=== PATIENT | female | born 1985 | race African-American/Black ===

== ENCOUNTER 2020-10-20 09:09 | Emergency (ER) | payer OTHER, SELFPAY ==
[2020-10-20 09:20] VITALS: BP 122/85; PULSE 68; RESP 16; TEMP 36.3; O2SAT 99
--- NOTE | 2020-10-20 09:48 | ED.FEMALEGU ---
HPI - Female Genitourinary General Chief complaint: Urogenital-Female Stated complaint: pos yeast infection Time Seen by Provider: 10/20/20 09:45 Source: patient Mode of arrival: ambulatory Limitations: no limitations History of Present Illness HPI Narrative: Wilton Morales is a 35 yo female with a PMH of asthma who [facility] with complaints of a yellow discharge that started this morning and and itching for the past 3 days after treatment with Cipro for UTI. She denies possibility of STD, and although she has not had a menstrual cycle for 2 months states she cannot be as she has had a tubal ligation Related Data Allergies Allergy/AdvReac Type Severity Reaction Status Date / Time No Known Allergies Allergy Verified 10/20/20 09:31 Review of Systems Review of Systems: CONSTITUTIONAL: Denies fever, chills, sweats. EYES: Denies visual changes, redness, discharge. ENT: Denies rhinorrhea, congestion, sore throat, otalgia. CARDIOVASCULAR: Denies chest pain, palpitations, edema. RESPIRATORY: Denies dyspnea, wheezing, cough GASTROINTESTINAL: Denies abdominal pain, nausea, vomiting, diarrhea. GENITOURINARY: Denies dysuria, hematuria, has yellowish abnormal discharge SKIN: Denies rash or itching. NEUROLOGIC: Denies numbness, or focal weakness. PSYCHIATRIC: Denies anxiety or depression. PMFSH Past Medical History Medical History No acute medical problems Social History Social History (Updated 10/20/20 @ 10:06 by Darleen Gregory CNP) Smoking status: Never smoker Alcohol intake: never Gender identity (if verbalized by the patient): Female Comments At time of signature, I agree with nursing past medical, surgical, social and family history. There is no relevant family history pertinent to the presenting complaint. Exam Narrative: GENERAL: This is a well-nourished, well-developed patient, in mild distress. HEAD: normocephalic, atraumatic. EYES: Sclera clear/white. Vision is grossly intact. EARS: External ears normal, . Hearing grossly intact. NOSE: External nose normal without nasal discharge, nares without redness, no rhinorrhea. THROAT: Mucous membranes moist, NECK: Neck supple, CARDIOVASCULAR: Regular rate and rhythm without murmurs, gallops, or rubs. RESPIRATORY: Clear to auscultation. Breath sounds equal bilaterally. No wheezes, rales, or rhonchi. GASTROINTESTINAL: Abdomen soft, : White vaginal discharge with redness of the vaginal vault no lesions no excoriation no edema no CMT SKIN: warm, intact with no suspicious lesions or rash, good texture and turgor. NEURO: awake, alert, and oriented to person, place and time. There were no obvious focal neurologic abnormalities. Steady gait EXTREMITIES: Normal range of motion. BACK: Nontender without deformity Course Course Emergency Course: Patient comes after close to completion of Cipro prescription for pyelonephritis with itchiness and irritation of the vaginal area, denies STD or urinary tract symptoms Started on Diflucan and vaginal cream Vital Signs Vital signs: Vital Signs Temperature 97.3 F L 10/20/20 09:20 Pulse Rate 68 10/20/20 09:20 Respiratory Rate 16 10/20/20 09:20 Blood Pressure 122/85 10/20/20 09:20 Pulse Oximetry 99 10/20/20 09:20 Temperature 97.3 F L 10/20/20 09:20 Pulse Rate 68 10/20/20 09:20 Respiratory Rate 16 10/20/20 09:20 Blood Pressure 122/85 10/20/20 09:20 Pulse Oximetry 99 10/20/20 09:20 MDM - Female Genitourinary Differential Diagnosis Differential diagnosis: Likely bacterial vaginosis, cervicitis, vaginitis and other Lab Data Labs: UCG Bedside Result Negative Reference Range: Negative Urine Glucose Negative Reference Range: Negative Urine Bilirubin Negative
== END 2020-10-20 10:25 | disposition home or self-care (01) ==
PROVIDERS: Emergency Provider Nurse Practitioner
DX: N76.0 Acute vaginitis (principal); J45.909 Unspecified asthma, uncomplicated
CPT/HCPCS: 81003; 81025; 99213; G0463

== ENCOUNTER 2023-06-12 10:56 | Emergency (ER) | payer OTHER, SELFPAY ==
--- NOTE | ~2023-06-12 | XR_ITS ---
EXAMINATION: XR chest 1V portable DATE: 06/12/2023 13:26 INDICATION: Left breast pain. TECHNIQUE: A single frontal view of the chest was obtained on 2 radiographs. COMPARISON: Chest one view 12/31/2022 FINDINGS: There is no pneumonia, pleural effusion, or pneumothorax. The heart size is normal. IMPRESSION: 1. No acute cardiopulmonary disease. Reviewed, dictated and finalized at location A.
[2023-06-12 11:05] VITALS: BP 121/83; PULSE 95; RESP 18; TEMP 37.1; O2SAT 99
[2023-06-12 12:41] LABS: Basophils Absolute Auto 0.1 K/mm3 (0.0-0.1); Basophils Percent Auto 1.3 % (0.2-1.2); Eosinophils Absolute Auto 0.2 K/mm3 (0-0.3); Eosinophils Percent Auto 3.2 % (0-4.4); Hematocrit 33.4 % (37.0-47.0); Immature Granulocyte Absolute 0.01 K/mm3 (0.00-0.031); Immature Granulocyte Percent A 0.2 % (0-0.5); Lymphocytes Absolute Auto 2.27 K/mm3 (0.9-3.2); Lymphocytes Percent Auto 48.7 % (18.3-44.2); Mean Corpuscular HGB Conc 32.9 g/dl (32-36); Mean Corpuscular Hemoglobin 26.1 pg (26-34); Mean Corpuscular Volume 79.3 fl (80-100); Mean Platelet Volume 10.2 fl (7.4-10.4); Monocytes Absolute Auto 0.3 K/mm3 (0.1-0.6); Monocytes Percent Auto 5.6 % (2.6-8.5); Neutrophils Absolute Auto 1.9 K/mm3 (1.3-6.7); Platelet Count Result 218 k/mm3 (150-375); Red Blood Count 4.21 M/mm3 (4.2-5.4); Red Cell Distribution Width 14.4 % (11.5-14.5); White Blood Count 4.7 K/mm3 (4.5-10.0)
[2023-06-12 12:55] LABS: Alanine Aminotransferase 19 U/L (6-35); Alkaline Phosphatase 67 U/L (38-126); Anion Gap 4 mmol/L (4-12); Aspartate Amino Transferase 30 U/L (14-36); Bilirubin,Total 0.8 mg/dL (0.2-1.3); Blood Urea Nitrogen 10 mg/dL (7-17); Calcium 8.4 mg/dL (8.4-10.2); Carbon Dioxide 28 mmol/L (22-30); Chloride 107 mmol/L (98-107); Estimated CRCL calculation 100 ml/min; Estimated Glomerular Filt Rate > 60; Glucose 79 mg/dL (65-110); Potassium 3.7 mmol/L (3.4-5.0); Sodium 139 mmol/L (137-145)
--- NOTE | 2023-06-12 13:12 | ED.GENADULT ---
HPI - General Adult General Chief complaint: Unspecified Stated complaint: breast pain, lumps Time Seen by Provider: 06/12/23 12:20 History of Present Illness HPI narrative: 37-year-old female present to the emergency department for evaluation of bilateral breast pain that is been ongoing for the last 2 weeks. Patient reports he does have a family history of breast cancer but denies any personal history breast cancer. Patient denies any recent illnesses or coughs colds or fever. Patient denies any skin breakdown or changes to the breast. Patient did feel lumps on the breast bilaterally. Related Data Home Medications Medication Instructions Recorded Confirmed albuterol sulfate 90 mcg/actuation 1 puff inhalation Q4H PRN 04/17/21 09/30/22 aerosol inhaler (ProAir HFA) budesonide-formoterol HFA 160 2 puff inhalation Q12H 04/17/21 09/30/22 mcg-4.5 mcg/actuation aerosol inhaler (Symbicort) Allergies Allergy/AdvReac Type Severity Reaction Status Date / Time No Known Allergies Allergy Verified 09/30/22 09:59 Review of Systems Review of Systems: All systems reviewed & are unremarkable except as noted in HPI and below PMFSH Past Medical History Medical History (Updated 06/12/23 @ 13:46 by Mayco Ruano MD) Asthma Constipation Dysuria Encounter for IUD insertion 06/11/06 mirena iud insertion 02/10/11 mirena iud removal Gonorrhea Hx of trichomonal vaginitis No acute medical problems Surgical History Surgical History (Updated 09/30/22 @ 10:05 by PRINCE Rocha) History of gastric bypass (11/28/21) History of tubal ligation 01/20/12 Family History Family History Mother Diabetes mellitus Father Diabetes mellitus Grandparent Breast cancer maternal grandmother Other Breast cancer maternal aunt Social History Social History (Updated 09/30/22 @ 10:06 by PRINCE Rocha) Smoking status: Never smoker Alcohol intake: never Substance use: never Substance use type: does not use Lack of Transportation: No Lack of Food: Never True Current Housing: I Have Housing Concerned About Future Housing: No Difficulty Paying Gas/Electric Bills: No Difficulty Paying for Meds: No Currently Unemployed: No Education: Trade/Vocational Certificate Difficulty w/ Childcare or Family Care: No Living arrangements: with family Additional living arrangements comments: children/ single Occupation/Education: occupation 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 HEAD: normocephalic, atraumatic. EYES: PERRLA/EOMI, conjunctivae clear. NOSE: Normal no drainage EARS:TMS clear with good light reflex. THROAT: Pharynx clear, no exudate. NECK: Supple. No adenopathy, no masses. RESPIRATORY: Airway patent, respirations nonlabored. Clear to auscultation bilaterally, no rales, rhonchi, wheezing. CARDIOVASCULAR: Regular rate and rhythm without murmurs rubs or gallops. ABDOMINAL: Soft, nontender, nondistended, normal bowel sounds MUSCULOSKELETAL: Moves all extremities. Strength/ROM intact, No edema, No calf tenderness. NEURO: Alert. Cranial nerves II through XII intact. Grossly intact SKIN: Warm, dry. Normal Color. no large lymph nodes palpated on the breast but some small lymph nodes were palpated. No skin changes or inverted nipple Course Course Emergency Course: patient was encouraged to have close follow-up with primary care physician and Ob Gyne to have an outpatient mammogram and ultrasound as needed Vital Signs Vital signs: Vital Signs Temperature 98.7 F 06/12/23 11:05 Pulse Rate 95 06/12/23 11:05 Respiratory Rate 18 06/12/23 11:05 Blood Pressure 121/83
[2023-06-12] MEDS: HYDROcodone/acetaminophen (*CRX) 5-325 MG TABLET 1 TAB PO (13:17)
[2023-06-12] MEDS: KETOROLAC 30 MG/ML VIAL (*BKC) IM (13:17)
== END 2023-06-12 14:11 | disposition home or self-care (01) ==
PROVIDERS: Emergency Provider Emergency Medicine; PCP Internal Medicine Gastroenterology
DX: N64.4 Mastodynia (principal); Z80.3 Family history of malignant neoplasm of breast; J45.909 Unspecified asthma, uncomplicated
CPT/HCPCS: 36415; 71045; 80053; 85025; 96372; 99283; A9270; J1885

== ENCOUNTER 2023-08-21 14:41 | Outpatient (CLI) | payer OTHER, SELFPAY ==
--- NOTE | 2023-08-21 | ECG_ITS ---
Test Date: 2023-08-21 15:17:47 Measurements Intervals [place] Rate: 51 P: 61 MA: 131 QRS: 57 QRSD: 94 T: 40 QT: 446 QTc: 413 Interpretive Statements SINUS BRADYCARDIA No previous ECG available for comparison Electronically Signed On 08-22-2023 15:52:33 CDT by Kennedy Segura M.D.
== END 2023-08-21 14:42 | disposition home or self-care (01) ==
LOC: ANHCARD 14:43
PROVIDERS: PCP Internal Medicine Gastroenterology
DX: K90.9 Intestinal malabsorption, unspecified (principal); Z98.84 Bariatric surgery status; Z68.30 Body mass index [BMI] 30.0-30.9, adult
CPT/HCPCS: 93005

== ENCOUNTER 2024-03-01 11:34 | Outpatient (CLI) | payer OTHER, SELFPAY ==
--- NOTE | ~2024-03-01 | MM_ITS ---
EXAMINATION: MM screening [facility] BI w beth HISTORY: Baseline TECHNIQUE: Craniocaudal and mediolateral oblique 3-D tomosynthesis images were obtained and synthetic 2-D images were generated. CAD analysis was submitted and interpreted. COMPARISON: None BREAST PARENCHYMAL COMPOSITION: FINDINGS: Punctate and bulky calcifications detected bilaterally, benign in morphology. Unremarkable parenchymal pattern without suspicious microcalcifications, architectural distortion, di screte masses or significant asymmetry. IMPRESSION: 1. No mammographic evidence of malignancy. 2. Recommend routine screening mammography in one year. BI-RADS Category 2: Benign finding(s). Reviewed, dictated and finalized at location A. [employer]IVE ELECT[employer]ICAL [employer]TER
== END 2024-03-01 11:35 | disposition home or self-care (01) ==
PROVIDERS: PCP Internal Medicine Gastroenterology; Visit Provider Obstetrics & Gynecology
DX: Z12.31 Encounter for screening mammogram for malignant neoplasm of breast (principal)
CPT/HCPCS: 77063; 77067

== ENCOUNTER 2024-06-05 02:18 | Emergency (ER) | payer OTHER, SELFPAY ==
--- NOTE | ~2024-06-05 | XR_ITS ---
CHEST RADIOGRAPH, PA AND LATERAL CLINICAL HISTORY: sob . COMPARISON: 06/12/2023 TECHNIQUE: PA and lateral views of the chest. FINDINGS The cardiomediastinal silhouette is unremarkable. The lungs are clear. Visualized osseous structures and soft tissues are unremarkable. IMPRESSION: No focal infiltrate or effusion. Reviewed, dictated and finalized at location A.
[2024-06-05 02:19] VITALS: BP 126/82; PULSE 89; RESP 16; TEMP 36.4; O2SAT 100
--- NOTE | 2024-06-05 02:19 | ECG_ITS ---
Test Date: 2024-06-05 02:24:28 Measurements Intervals [place] Rate: 88 P: 48 MD: 143 QRS: 43 QRSD: 90 T: -19 QT: 375 QTc: 455 Interpretive Statements SINUS RHYTHM NONSPECIFIC T-WAVE ABNORMALITY ABNORMAL ECG Electronically Signed On 06-05-2024 07:42:35 CDT by Tobias Desai M.D.
--- OUTSIDE RECORDS SUMMARY | 2024-06-05 02:20 | XMS_ITS | Clinical Summary ---
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 Gender Identity Not on file Sexual Orientation Not on file Plan of Treatment Health Maintenance Due Date Last Done Comments Hepatitis C Virus (HCV) Screening 1987 TdaP Immunization 1987 Influenza Immunization (#1) 2023 SARS-COV-2 Immunization ( season) 2023 02/27/2021, 07/28/2020, 07/07/2020 Respiratory Syncytial Virus (RSV) Immunization (Adult) (1 - 1-dose 75+ series) 10/04/2062 DTaP/Tdap/Td Immunization Discontinued 1991, 04/11/1989, 04/12/1988, Additional history exists Hepatitis B Immunization Completed 999, 12/05/1997, 10/31/1997 Meningococcal Immunization (ACWY) Aged Out No longer eligible based on patient's age to complete this topic Pneumococcal Immunization Combined Aged Out No longer eligible based on patient's age to complete this topic Rotavirus Immunization Aged Out No lo nger eligible based on patient's age to complete this topic
--- OUTSIDE RECORDS SUMMARY | 2024-06-05 02:20 | XMS_ITS | Clinical Summary ---
Author Organization [facility] Address [address] [place] [address] Care Team Providers Care Documentation Writer Name Role Phone No, Physician Primary Care Provider [phone] Liset Jaimes PT Unavailable Unavailab le Allergies No known active allergies Medications albuterol HFA (PROVENTIL HFA,VENTOLIN HFA,PROAIR HFA) 90 mcg/actuation inhaler Inhale 2 puffs every 8 (eight) hours as needed Active albuterol 2.5 mg /3 mL (0.083 %) nebulizer solution Take 2.5 mg by nebulization every 8 (eight) hours as needed for wheezing Active Symbicort 160-4.5 mcg/actuation inhaler Inhale 2 puffs as needed 11/16/19 22 Active montelukast (SINGULAIR) 10 mg tablet Take 10 mg by mouth nightly 11/16/19 22 Active cyclobenzaprine (FLEXERIL) 10 mg tablet Take 1 tablet (10 mg total) by mouth every 8 (eight) hours for 4 days 12 tablet 11/30/19 22 Active ondansetron ODT (ZOFRAN-ODT) 4 mg disintegrating tablet Take 1 tablet (4 mg total) by mouth every 8 (eight) hours as needed for nausea or vomiting 30 tablet 11/30/19 22 Active docusate sodium (COLACE) 100 mg capsuleIndications :constipation,stoo l softener Take 1 capsule (100 mg total) by mouth 2 (two) times a day as needed for constipation 20 capsule 11/30/19 22 Active multivitamin tabletIndications: Vitamin Deficiency Prevention Take 1 tablet by mouth 2 (two) times a day 60 tablet 1 11/30/19 22 Active cyanocobalamin (Vitamin B-12) 500 mcg tabletIndications: Prevention of Vitamin B12 Deficiency Take 1 tablet (500 mcg total) by mouth daily 30 tablet 1 12/01/19 22 Active Active Problems Problem Noted Date Diagnosed Date Urinary tract infectious disease 08/19/2023 Thiamine deficiency 04/08/2023 Hypoglycemic syndrome 04/07/2023 Bariatric surgery status 01/10/2022 Overview (01/10/2022): Added automatically from request for surgery [id number] Vomiting 01/10/2022 Overview (01/10/2022): Added automatically from request for surgery [id number] Morbid (severe) obesity due to excess calories 0 11/28/2021 Gastroesophageal reflux disease without esophagi tis 10/03/2020 Fatigue 07/12/2020 Dizziness 07/12/2020 Disorder of skin 07/12/2020 Overview (08/21/2023): possible tinea versicolour Mass of soft tissue 07/12/2020 Overview (08/21/2023): left scalp Morning headache 07/12/2020 No diagnosis on Kismet I 04/13/2020 Asthma 03/20/2020 Hypersomnia 03/20/2020 Snoring 03/20/2020 Morbid obesity 01/09/2020 Encounters Date Type Department Care Team Description 04/13/2024 2:53 PM PRECINCT CAPTAIN - 04/13/2024 11:59 PM PRECINCT CAPTAIN Hospital Encounter [facility] [address] [place] [address] Pre-employment health screening examination Discharge Disposition: Discharge to home or self care 04/13/2024 Orders Only [facility] [address] [facility] [address] (Third Floor) [place] [address] Tito King MD Pre-employment health screening examination (Primary Dx) from Last 3 Months Immunizations Immunization Administration Dates Next Due Hep B, Adolescent or Pediatric 05/01/1998,1997,10/31/1997 MMR 09/04/1991,01/10/1989,04/12/1988 Pfizer SARS-CoV-2 Monovalent Vaccination (12+ Yrs) PURPLE 07/28/2020,07/07/2020 Surgical History Surgery Date Site/Laterality Comments TUBAL LIGATION Medical History Medical History Date Comments GERD (gastroesophageal reflux disease) Asthma Morbid obesity (HCC) Obesity 01/2003 Sickle cell trait Family History Medical History Relation Name Comments Alcohol abuse Father Rambo Asthma Father Rambo COPD Father Rambo Cancer Father Rambo Depression Father Rambo Drug abuse Father Rambo Hypertension Father Rambo Obesity Father Rambo Cancer Mother Lotus Depression Mother Louts Obesity Mother Lotus Relation Name Status Comments Father Rambo Mother Lotus Social History Tobacco Use Types Packs/Day Years Used Date Smoking Tobacco: Never Smokeless Tobacco: Never Tobacco Cessation:Counseling Given: Not Answered Alcohol Use Standard Drinks/Week Comments Yes 0 (1 standard drink = 0.6 oz pur e alcohol) AUDIT-C Answer Date Recorded Q1: How often do you have a drink containing alc ohol? Monthly or less 11/18/2021 Q2: How many drinks containi ng alcohol do you have on a typical day when you are drinking? 3 or 4 11/18/2021 Q3: How often do you have si x or more drinks on one occasion? Never 11/18/2021 Comments No Sex and Gender Information Value Date Recorded Sex Assigned at Not on file Legal Sex Female 8:44 PM PRECINCT CAPTAIN Gender Identity Female 01/04/2020 2:45 PM CDT Sexual Orientation Straight 01/04/2020 2: 45 PM CDT Obstetrics History Last Filed Vital Signs Vital Sign Reading Time Taken Comments Blood Pressure 138/82 01/08/2022 9:48 AM CDT Pulse 81 01/08/2022 9:48 AM CDT Temperature 36.2 C (97.1 F) 01/08/2022 9:48 AM CDT Respiratory Rate 16 11/29/2021 12:1 9 PM CDT Oxygen Saturation 100% 12/04/2021 10: 10 AM CDT Inhaled Oxygen Concentration - - Weight 107.7 kg (237 lb 6.4 oz) 01/08/2022 9:48 AM CDT Height 165.1 cm (5' 5 ) 01/08/2022 9:48 AM CDT Body Mass Index 39.51 01/08/2022 9:48 AM CDT Plan of Treatment Health Maintenance Due Date Last Done Comments Cervical Cancer Screening 1987 Depression Screening 1987 Hepatitis C Screening 1987 DTaP/Tdap/Td Vaccine (6 - Tdap) 10/04/1998 01/03/1992, 04/11/1989, 04/12/1988, Additional history exists Varicella Vaccines (1 of 2 - 13+ 2-dose series) 10/04/2000 Regular Well Visit/Exam 18-64 10/04/2005 Pneumococcal vaccine <65 (1 of 2 - PCV) 10/04/2006 Covid-19 Vaccine ( season) 2023 02/27/2021, 07/28/2020, 07/07/2020 Influenza Vaccine (#1) 2023 01/22/2023 Hepatitis B Screening Completed 05/01/1998 , 12/05/1997, 10/31/1997 HPV Vaccines Aged Out No longer eligi ble based on patient's age to complete this topic Medical Devices Implanted Type Area Crime Prevention Police Officer Device Identifier Shelf Expiration Date Model / Serial / Lot [employer] Bariatric Peristrip Non Crosslinked Bovine Pericardium For Endo Iva Thin [id number] - [id number] Implanted:Qty: 1 on 11/28/2021 by Abdullahi Jordan MD at [facility] Staple N/A: Stomach [employer] 09/27/2022 [id number] / / [id number] [employer] Bariatric Peristrip Non Crosslinked Bovine Pericardium For Endo Iva Thin [id number] - [id number] Implanted:Qty: 1 on 11/28/2021 by Abdullahi Jordan MD at [facility] Staple N/A: Stomach [employer] 09/27/2022 [id number] / / [id number] Procedures Procedure Name Priority Date/Time Associated Diagnosis Comments T-SPOT.TB Routine 04/13/2024 2:22 PM PRECINCT CAPTAIN Pre-employment health screening examination VARICELLA ZOSTER ANTIBODY, IGG Routine 04/13/2024 2:22 PM PRECINCT CAPTAIN Pre-employment health screening examination from Last 3 Months Results * T-SPOT.TB Blood (04/13/2024 2:22 PM PRECINCT CAPTAIN) [facility] T-SPOT.TB Negative SeeBelow Comment: Normal Value: Negative A negative test result does not exclude the possibility of exposure to or infection with Mycobacterium tuberculosis (M. tuberculosis). Patients with recent exposure to TB infected individuals exhibiting a negative T-SPOT.TB result should be considered for retesting within 6 weeks or if other relevant clinical symptoms indicate. Results from T-SPOT.TB testing must be used in conjunction with each individual's epidemiological history, current medical status, and results of other diagnostic evaluations. The T-SPOT.TB test is qualitative and results are reported as positive, borderline or negative, given that the test controls perform as expected. In line with the Centers for Disease Control and Prevention's 2010 recommendation to report quantitative measurements alongside the qualitative result, the laboratory provides spot counts for informational purposes only. The T-SPOT.TB test should not be interpreted as a quantitative test. T-SPOT.TB Panel A Spot Count 1 [facility] T-SPOT.TB Panel B Spot Count 0 [facility] T-SPOT.TB Negative Control Passed [facility] T-SPOT.TB Positive Control Passed [facility] Comment: Test Performed at: [facility], [employer] [address] [place] [id number] MELISSA CABRAL,PHD Blood 04/13/2024 2:22 PM PRECINCT CAPTAIN 04/13/2024 7:46 PM PRECINCT CAPTAIN Narrative [facility] - 04/15/2024 3:12 PM PRECINCT CAPTAIN Patient is employed by/enrolled at:->[facility] Tito King MD LAB MICROBIOLOGY - GENERAL OR DERABLES Final Result [facility] Department [place] [address] * Varicella Zoster IgG antibody Blood (04/13/2024 2:22 PM PRECINCT CAPTAIN) [facility] IgG Reactive Reactive Comment:Reactive: Results charlton ggest response to immunization or prior exposure to the virus. Blood 04/13/2024 2:22 PM PRECINCT CAPTAIN 04/13/2024 3:00 PM PRECINCT CAPTAIN Narrative [facility] - 04/14/2024 10:33 AM PRECINCT CAPTAIN Patient is employed by/enrolled at:->[facility] Tito King MD LAB MICROBIOLOGY - GENERAL OR DERABLES Final Result [facility] Department [place] [address] from Last 3 Months Insurance [facility] Advance Directives For more information, please contact: [phone] * Full Code (Latest Code Status on File) Date Activated Date Inactivated Comments 11/28/2021 5:39 PM 11/29/2021 9:25 PM * Full Code Date Activated Date Inactivated Comments 10/03/2020 9:04 AM 10/03/2020 1:25 PM Care Teams Documentation Writer Relationship Specialty Start Date End Date No, Physician PCP - General 05/22/21 Liset Jaimes, PT Physical Therapist Physical Therapy 07/31/21
--- OUTSIDE RECORDS SUMMARY | 2024-06-05 02:20 | XMS_ITS | Referral Summary ---
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 Role Phone No, Physician Primary Care Provider [phone] Liset Jaimes PT Unavailable Unavailab le Encounters Date Type Department Care Team Description 04/13/2024 2:53 PM RISK ANALYST - 04/13/2024 11:59 PM RISK ANALYST Hospital Encounter [facility] [address] [place] [address] Pre-employment health screening examination Discharge Disposition: Discharge to home or self care 04/13/2024 Orders Only [facility] [address] (Third Floor) [place] [address] Tito King MD Pre-employment health screening examination (Primary Dx) from Last 3 Months Allergies No known active allergies Medications albuterol [...] Take 10 mg by mouth nightly 11/16/19 Active cyclobenzaprine (FLEXERIL) 10 mg tablet Take [...] (01/10/2022): Added automatically from request for surgery [id number] Vomiting 01/10/2022 Overview (01/10/2022): Added automatically from request for surgery [id number] Morbid (severe) obesity due to excess calories 0 11/28/2021 Gastroesophageal reflux disease without esophagi tis 10/03/2020 Fatigue 07/12/2020 Dizziness 07/12/2020 Disorder of skin 07/12/2020 Overview (08/21/2023): possible tinea versicolour Mass of soft tissue 07/12/2020 Overview (08/21/2023): left scalp Morning headache 07/12/2020 No diagnosis on [place] I 04/13/2020 Asthma 03/20/2020 Hypersomnia 03/20/2020 Snoring 03/20/2020 Morbid obesity 01/09/2020 Immunizations Immunization Administration Dates Next Due Hep B, Adolescent or Pediatric 05/01/1998,1997,10/31/1997 MMR 09/04/1991,01/10/1989,04/12/1988 Pfizer SARS-CoV-2 Monovalent Vaccination (12+ Yrs) PURPLE 07/28/2020,07/07/2020 Social History Tobacco Use Types Packs/Day Years [...] on file Legal Sex Female 8:44 PM RISK ANALYST Gender Identity Female 01/04/2020 2:45 PM CDT Sexual Orientation Straight 01/04/2020 2: 45 PM CDT Last Filed Vital Signs Vital Sign Reading [...] 01/08/2022 9:48 AM CDT Plan of Treatment Not on file Medical Devices Implanted Type Area Medical Assistant Secretary Device Identifier Shelf Expiration Date Model / Serial / Lot [employer] Donny Biological Bariatric Peristrip Non Crosslinked Bovine Pericardium For Endo Iva Thin [id number] - [id number] Implanted:Qty: 1 on 11/28/2021 by Abdullahi Jordan MD at [facility] Staple N/A: Stomach [employer] Donny 09/27/2022 [id number] / / [id number] CICCWORLD Biological Bariatric Peristrip Non Crosslinked Bovine Pericardium For Endo Iva Thin [id number] - [id number] Implanted:Qty: 1 on 11/28/2021 by Abdullahi Jordan MD at [facility] Staple N/A: Stomach [employer] Donny 09/27/2022 [id number] / / [id number] Procedures Procedure Name Priority Date/Time Associated Diagnosis Comments T-SPOT.TB Routine 04/13/2024 2:22 PM RISK ANALYST Pre-employment health screening examination VARICELLA ZOSTER ANTIBODY, IGG Routine 04/13/2024 2:22 PM RISK ANALYST Pre-employment health screening examination from Last 3 Months Results * T-SPOT.TB Blood (04/13/2024 2:22 PM RISK ANALYST) [facility] T-SPOT.TB Negative SeeBelow Comment: Normal Value: Negative [...] test. T-SPOT.TB Panel A Spot Count 1 [facility] T-SPOT.TB Panel B Spot Count 0 [facility] T-SPOT.TB Negative Control Passed [facility] T-SPOT.TB Positive Control Passed [facility] Comment: Test Performed at: [facility] [address] [place] [address] MELISSA CABRAL,PHD Blood 04/13/2024 2:22 PM RISK ANALYST 04/13/2024 7:46 PM RISK ANALYST Narrative [facility] - 04/15/2024 3:12 PM RISK ANALYST Patient is employed by/enrolled at:->[facility] Tito King MD LAB MICROBIOLOGY - GENERAL OR DERABLES Final Result Performing Organization Address [facility] Co de Phone Number [facility] [place] [address] * Varicella Zoster IgG antibody Blood (04/13/2024 2:22 PM RISK ANALYST) [facility] VZV IgG Reactive Reactive Comment:Reactive: Results charlton ggest response to immunization or prior exposure to the virus. Blood 04/13/2024 2:22 PM RISK ANALYST 04/13/2024 3:00 PM RISK ANALYST Narrative [facility] - 04/14/2024 10:33 AM RISK ANALYST Patient is employed by/enrolled at:->[facility] Tito King MD LAB MICROBIOLOGY - GENERAL OR DERABLES Final Result Performing Organization Address [facility] de Phone Number [facility] [place] [address] from Last 3 Months Insurance [facility] Advance Directives For more information, please contact: [phone] * Full Code (Latest Code Status on File) Date Activated Date Inactivated Comments 11/28/2021 5:39 PM 11/29/2021 9:25 PM * Full Code Date Activated Date Inactivated Comments 10/03/2020 9:04 AM 10/03/2020 1:25 PM Care Teams Raw Stock Machine Loader Relationship Specialty Start Date End Date No, Physician PCP - General 05/22/21 Liset Jaimes PT Physical Therapist Physical Therapy 07/31/21
--- OUTSIDE RECORDS SUMMARY | 2024-06-05 02:20 | XMS_ITS | Data Portability ---
Author Organization [facility] Address [address] [place] [address] Assessment No assessment recorded. Plan of Treatment Reminders Order Date Submit Date Provider Last Modified By Organization Details Last Modified Time Details Appointments None recorded. Lab urinalysis, dipstick 2023 [email or web address] [id number] In-Office Order, Internal Use Only DO Not Attach Compendium DO Not Attach Compendium, Do Not Delete/merge, [id number] 17:30:54 Referral None recorded. Procedures None recorded. Surgeries None recorded. Imaging None recorded. Medication Orders Bactrim DS 800 mg-160 mg tablet 2023 [id number], [address], [place], [id number], 4 17:30:58 thiamine HCl (vitamin B1) 100 mg tablet 2023 024 [id number], [address], [place], [id number], 4 17:30:57 cyanocobala min (vit B-12) 1,000 mcg/mL injection solution 2023 024 [email or web address] [facility][id number], [address], [place], [id number], 4 19:54:25 cyanocobala min (vit B-12) 1,000 mcg/mL injection solution 2023 024 [facility] #[id number], [address], [place], [id number], 4 10:16:27 cyanocobala min (vit B-12) 1,000 mcg/mL injection solution 2023 024 [facility] #[id number], [address], [place], [id number], 4 10:31:35 Patient TargetsNo targets recorded. Patient Instructions Encounter Date Encounter Id Patient Instructions Last Modified By Organization Details Last Modified Time 08/19/2023 [id number] Urinary Tract Infection (UTI) in Women: Care Instructions [email or web address] Not available 08/19/2023 17:30:53 back care and preventing injuries: care instructions [email or web address] Not available 08/19/2023 17:30:52 Reason for Referral None Reported. Results Created Date Observation Date Name Description Value Unit Range Abnormal Flag Note LastModifiedBy Organization Detail LastModifiedTime 04/08/19 24 04/08/2023 BASIC METAB OLIC PANEL (7) glucose 80 mg/dL 70-99 Not Available [facility] [address] [place], [address], 04/09/2023 06:20:31 04/08/19 24 04/08/2023 BASIC METAB OLIC PANEL (7) BUN 12 mg/dL 6-20 Not Available [facility] [address] [place], [address], 04/09/2023 06:20:31 04/08/19 24 04/08/2023 BASIC METAB OLIC PANEL (7) creatinine 0.68 mg/dL 0.76-1 .27 below low normal Not Available [facility] [address] [place], [address], 04/09/2023 06:20:31 04/08/19 24 04/08/2023 BASIC METAB OLIC PANEL (7) eGFR 116 >=60 Units for eGFR value s are mL/mi n/1.7 3 The eGFR Calcu latio n has not been valid ated for patie nts under the age of 18. If test resul ts are displ ayed for a patie nt under the age of 18, disre madelin that value . Not Available [facility] Department [address] [place] [address], [address], 04/09/2023 06:20:31 04/08/19 24 04/08/2023 BASIC METAB OLIC PANEL (7) BUN/creatini ne ratio 18 9-23 Not Available [facility] Department [address] [place] [address], [address], 04/09/2023 06:20:31 04/08/19 24 04/08/2023 BASIC METAB OLIC PANEL (7) sodium 142 mmol/ L 134-14 4 Not Available [facility] Department [address] [place] [address], [address], 04/09/2023 06:20:31 04/08/19 24 04/08/2023 BASIC METAB OLIC PANEL (7) potassium 4.5 mmol/ L 3.5-5. 2 Not Available [facility] [address] [place] [address], [address], 04/09/2023 06:20:31 04/08/19 24 04/08/2023 BASIC METAB OLIC PANEL (7) chloride 106 mmol/ L 96-106 Not Available [facility] Department [address] [place] [address], [address], 04/09/2023 06:20:31 04/08/19 24 04/08/2023 BASIC METAB OLIC PANEL (7) carbon dioxide, total 24 mmol/ L 20-29 Not Available [facility] Department [address] [place] [address], [address], 04/09/2023 06:20:31 04/08/19 24 04/08/2023 CBC, PLATE LET, NO DIFFE RENTI AL WBC 4.3 x10e3 /uL 3.4-10 .8 Not Available [facility] Department [address] [place], [address], 04/09/2023 06:20:32 04/08/19 24 04/08/2023 CBC, PLATE LET, NO DIFFE RENTI AL RBC 4.55 x10e6 /uL 3.77-5 .28 Not Available [facility] Department [address] [place], [address], 04/09/2023 06:20:32 04/08/19 24 04/08/2023 CBC, PLATE LET, NO DIFFE RENTI AL hemoglobin 11.7 g/dL 11.1-1 5.9 Not Available [facility] [address] [place], [address], 04/09/2023 06:20:32 04/08/19 24 04/08/2023 CBC, PLATE LET, NO DIFFE RENTI AL hematocrit 36.6 % 34.0-4 6.6 Not Available [facility] [address] [place], [address], 04/09/2023 06:20:32 04/08/19 24 04/08/2023 CBC, PLATE LET, NO DIFFE RENTI AL MCV 80 fL 79-97 Not Available [facility] [address] [place], [address], 04/09/2023 06:20:32 04/08/19 24 04/08/2023 CBC, PLATE LET, NO DIFFE RENTI AL MCH 25.7 pg 26.6-3 3.0 below low normal Not Available [facility] [address] [place], [address], 04/09/2023 06:20:32 04/08/19 24 04/08/2023 CBC, PLATE LET, NO DIFFE RENTI AL MCHC 32.0 g/dL 31.5-3 5.7 Not Available [facility] [address] [place], [address], 04/09/2023 06:20:32 04/08/19 24 04/08/2023 CBC, PLATE LET, NO DIFFE RENTI AL RDW 13.9 % 11.5-1 4.5 Not Available [facility] [address] [place], [address], 04/09/2023 06:20:32 04/08/19 24 04/08/2023 CBC, PLATE LET, NO DIFFE RENTI AL platelets 258 x10e3 /uL 150-45 0 Mean Plate let Volum e 11.2 fL 8.9-1 2.7 N Not Available [facility] Department [address] [place], [address], 04/09/2023 06:20:32 04/08/19 24 04/08/2023 CBC, PLATE LET, NO DIFFE RENTI AL NRBC 0 % 0-0 Not Available [facility] [address] [place], [address], 04/09/2023 06:20:32 04/08/19 24 04/09/2023 INSUL IN AND C-PEP TIDE, SERUM insulin 7.9 uIU/m L 2.6-24 .9 Not Available [facility] ([facility]) [address] [place], [address], 04/09/2023 13:10:42 04/08/19 24 04/09/2023 INSUL IN AND C-PEP TIDE, SERUM C-peptide, serum 1.5 NG/mL 1.1-4. 4 C-Pep tide refer ence inter larry is for fasti ng patie nts. Not Available [facility] ([facility]) [address] [facility], [place], [address], 04/09/2023 13:10:42 04/08/19 24 04/09/2023 TSH+F REE T4 TSH 3.350 uIU/m L 0.450- 4.500 Not Available [facility] ([facility]) [address] [place], [address], 04/09/2023 13:10:43 04/08/19 24 04/09/2023 TSH+F REE T4 T4,free(dire ct) 1.04 NG/dL 0.82-1 .77 Not Available [facility] ([facility]) [address] [place], [address], 04/09/2023 13:10:43 04/08/19 24 04/09/2023 VITAM IN B12 AND FOLAT E vitamin B12 214 pg/mL 232-12 45 below low normal Not Available [facility] ([facility]) [address] [facility], [place], [address], 04/09/2023 13:10:44 04/08/19 24 04/09/2023 VITAM IN B12 AND FOLAT E folate (folic acid), serum 11.8 NG/mL >3.0 A serum folat e marie ntrat ion of less than 3.1 ng/mL is consi dered to repre sent clini brennan defic iency . Not Available [facility] ([facility]) [address] [facility], [place], [address], 04/09/2023 13:10:44 04/08/19 24 04/08/2023 HEMOG LOBIN A1C hemoglobin A1C 5.3 % 4.8-5. 6 Predi abete s: 5.7 - 6.4 Diabe ami: >6.4 Glyce arya contr ol for adult s with diabe ami: <7.0 Not Available [facility] ([facility]) [address] [place], [address], 04/09/2023 13:10:44 04/08/19 24 04/09/2023 TRIIO DOTHY LEI E (T3), FREE triiodothyro nine (T3), free 2.4 pg/mL 2.0-4. 4 Not Available [facility] ([facility]) [address] [facility], [place], [address], 04/09/2023 13:10:45 04/08/19 24 04/15/2023 VITAM IN B1 (THIA MINE) , BLOOD vit. B1, whole blood 55.1 nmol/ L 66.5-2 00.0 below low normal Magalie ified by repea t neal sis Not Available [facility] ([facility]) [address] [facility], [place], [address], 04/16/2023 06:23:31 08/19/19 24 08/19/2023 urina lysis , dipst ick Leukocytes Small Not Available In-Offi ce Order Internal Use Only DO Not Attach Compendium DO Not Attach Compendium, Do Not Delete/merge, 08/19/2023 17:09:20 08/19/19 24 08/19/2023 urina lysis , dipst ick Nitrite positi ve Not Available In-Office Order Internal Use Only DO Not Attach Compendium DO Not Attach Compendium, Do Not Delete/merge, 08/19/2023 17:09:20 08/19/19 24 08/19/2023 urina lysis , dipst ick Urobilinogen 1 Not Available In-Of fice Order Internal Use Only DO Not Attach Compendium DO Not Attach Compendium, Do Not Delete/merge, 08/19/2023 17:09:20 08/19/19 24 08/19/2023 urina lysis , dipst ick Protein Negati ve Not Available In-Office Order Internal Use Only DO Not Attach Compendium DO Not Attach Compendium, Do Not Delete/merge, 08/19/2023 17:09:20 08/19/19 24 08/19/2023 urina lysis , dipst ick pH 7.0 Not Available In-Office Order Internal Use Only DO Not Attach Compendium DO Not Attach Compendium, Do Not Delete/merge, 08/19/2023 17:09:20 08/19/19 24 08/19/2023 urina lysis , dipst ick Blood Non-He molyze d: Trace Not Available In-Office Order Internal Use Only DO Not Attach Compendium DO Not Attach Compendium, Do Not Delete/merge, 08/19/2023 17:09:20 08/19/19 24 08/19/2023 urina lysis , dipst ick Specific [place] 1.025 Not Available In-Off ice Order Internal Use Only DO Not Attach Compendium DO Not Attach Compendium, Do Not Delete/merge, 08/19/2023 17:09:20 08/19/19 24 08/19/2023 urina lysis , dipst ick Ketone Negati ve Not Available In-Office Order Internal Use Only DO Not Attach Compendium DO Not Attach Compendium, Do Not Delete/merge, 08/19/2023 17:09:20 08/19/19 24 08/19/2023 urina lysis , dipst ick Bilirubin Negati ve Not Available In-Office Order Internal Use Only DO Not Attach Compendium DO Not Attach Compendium, Do Not Delete/merge, 08/19/2023 17:09:20 08/19/19 24 08/19/2023 urina lysis , dipst ick Glucose Negati ve Not Available In-Office Order Internal Use Only DO Not Attach Compendium DO Not Attach Compendium, Do Not Delete/merge, 08/19/2023 17:09:20 08/19/19 24 08/19/2023 urina lysis , dipst ick Appearance Cloudy Not Available In-Offi ce Order Internal Use Only DO Not Attach Compendium DO Not Attach Compendium, Do Not Delete/merge, 08/19/2023 17:09:20 08/19/19 24 08/19/2023 urina lysis , dipst ick Color Yellow Not Available In-Office Order Internal Use Only DO Not Attach Compendium DO Not Attach Compendium, Do Not Delete/merge, 08/19/2023 17:09:20 06/12/19 24 06/12/2023 XR, chest No observ ation record ed. [place] [address], [place], [address], 06/26/2023 03:54:22 03/03/20 24 03/01/2024 MAMMO , scree guilherme, digit al, bilat eral No observ ation record ed. [place] [address], [place], [address], 03/24/2024 09:08:32 Result Notes None recorded. Problems Name Problem SNOMED Code Status Onset Date Resolution Date Notes Provider Name and Address Organization Details Recorded Time Dizzines s 915048722 Active 2020 Not Available [facility] 3 08:07:53 Morning headache 731835689 Active 2020 Not Available [facility] 3 08:07:53 Fatigue 07617319 Active 2020 Not Available [facility] 3 08:07:53 Family history of Thyroid disorder 489061295 Active 2020 Not Available [facility] 3 08:07:53 Body mass index 40+ - severely obese 569047295 Completed 202008/19/2023 Remi Francis MD Attn: Accounting ,[address] [facility], [place], [address] , [facility] 4 17:29:33 Mass of soft tissue 314428130 Active 2020 left scalp Not Available [facility] 3 08:07:53 Disorder of skin 32470889 Active 2020 possible tinea versicol our Not Available [facility] 3 08:07:53 Morbid obesity 428174193 Completed 202004/08/2023 Remi Francis MD Attn: Accounting ,[address] [facility], [place], [address] , [facility] 4 10:42:00 Allergic conditio n 474894377 Active 2020 Not Available [facility] 3 08:07:53 Reactive airway disease 81436730868 6 Active 2020 Not Available [facility] 3 08:07:53 Eruption 193227219 Active 2020 face Not Available 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 Active 2023 Remi Francis MD Attn: Accounting ,[address] [facility], [place], [place], [address] [place] [address] , [facility] 4 17:30:59 Thiamine deficien cy 283500960 Active 2023 Remi Francis MD Attn: Accounting ,[address] [facility], [place], [place], [address] [place] [address] , [facility] 4 13:44:20 Urinary tract infectio us disease 50004460 Active 2023 Remi Francis MD Attn: Accounting ,[address] [facility], [place], [address] , [facility] 4 17:27:25 Problem Notes None recorded. Procedures Surgical History Date Name Laterality Status Provider Name and Address Organization Details Recorded Time Tubal Ligation completed Shawna damon MA [facility] 07/12/2020 14:42:13 Imaging Results Imaging Date Name Status LastModified by Organiz ation Details LastModified Time 06/12/2023 XR, chest completed [address], [address], 06/26/2023 03:54:22 03/01/2024 MAMMO, screening, digital, bilateral completed [address], [address], 03/24/2024 09:08:32 Procedure Notes None recorded. Medical Equipment None Reported. Allergies No known drug allergies Medications Name Sig Start Date Stop Date Status Note LastModified by Organization Details LastModified Time Prescriptio n - Change 04/14 completed Not Available Not Available Not Available fluconazole 150 mg tablet TK 1 T PO QD 01/21 completed Not Available Not Available Not Available metronidazo le 0.75 % (37.5 mg/5 gram) vaginal gel INSERT 1 APPLICATO RFUL VAGINALLY DAILY FOR 5 DAYS 01/21 completed Not Available Not Available Not Available prednisone 20 mg tablet one tab po bid with food 01/07 completed Not Available Not Available Not Available ceftriaxone 250 mg solution for injection RECONSTIT [place] AND INJECT CONTENTS OF ONE VIAL FOR 1 DOSE 07/12 completed Not Available Not Available Not Available thiamine HCl (vitamin B1) 100 mg tablet Take 1 tablet every day by oral route. 2023 active Not Available Not Available Not Avai lable metronidazo le 500 mg tablet 04/14 completed Not Available Not Available Not Available ciprofloxac in 500 mg tablet TAKE 1 TABLET BY MOUTH TWICE DAILY 01/28 completed Not Available Not Available Not Available sulfamethox azole 800 mg-trimetho prim 160 mg tablet Take 1 tablet every 12 hours by oral route. active Not Available Not Available No t Available tramadol 50 mg tablet 04/14 completed Not Available Not Available Not Available ciprofloxac in 0.3 % eye drops INSTILL 1 DROP IN RIGHT EYE FOUR TIMES DAILY FOR 5 DAYS 04/14 completed Not Available Not Available Not Available cyanocobala min (vit B-12) 1,000 mcg/mL injection solution Inject 1 mL every week by subcutane ous route for 30 days. 2023 active Not Available Not Available Not Avai lable ursodiol 300 mg capsule 04/14 completed Not Available Not Available Not Available montelukast 10 mg tablet TAKE 1 TABLET BY MOUTH EVERY DAY active Not Available Not Available No t Available albuterol sulfate HFA 90 mcg/actuati on aerosol inhaler INHALE 2 PUFFS BY MOUTH FOUR TIMES DAILY NEEDED 2023 active Not Available Not Available Not Avai lable loratadine 10 mg tablet TAKE 1 TABLET BY MOUTH DAILY 2023 active Not Available Not Available Not Avai lable azithromyci n 500 mg tablet TK 2 TS PO AT ONCE 07/12 completed Not Available Not Available Not Available nitrofurant oin monohydrate /macrocryst als 100 mg capsule TAKE 1 CAPSULE BY MOUTH EVERY 12 HOURS FOR 5 DAYS 04/14 completed Not Available Not Available Not Available budesonide- formoterol HFA 160 mcg-4.5 mcg/actuati on aerosol inhaler INHALE 2 PUFFS BY MOUTH TWICE DAILY 2024 active Not Available Not Available Not Avai lable albuterol sulf 90 mcg/actuati on breath activated powder inhaler,sen sor Inhale 2 puffs every 4 hours by inhalatio n route. 01/21 completed Not Available Not Available Not Available Vitals Date Recorded Body height Provider Name an d Address Organization Details Last Updated DateTime 05/15/2023 167.64 cm Susana Peraltas on, [facility] 05/15/2023 10:51:16 Date Recorded Body height Body mass index (BMI) Body weight Oxygen saturation Oxygen saturation in Arterial blood by Pulse oximetry Heart rate Systolic blood pressure Diastolic blood pressure Provider Name and Address Organization Details Last Updated DateTime 167.64 cm 29.9 kg/m2 49315.5 9 g 99 % 99 % 58 /min 120 mm[Hg] 80 mm[Hg] Shawna Bryant MA [facility] 17:11:06 Social History Question Answer Notes LastModified by Organizat ion Details LastModified Time Tobacco Smoking Status Never Smoker Shawna Bryant MA [facility] 07/12/2020 14:42:05 What Was The Date Of Your Most Recent Tobacco Screening? 08/19/2023 Information not available 08/19/2023 Do You Use Any Illicit Or Recreational Drugs? No [email or web address] Information not available 04/08/2023 Has Tobacco Cessation Counseling Been Provided? No Information not available 08/19/2023 On What Date Was Tobacco Cessation Counseling Provided? 08/19/2023 Information not available 08/19/2023 Do You Or Have You Ever Used Any Other Forms Of Tobacco Or Nicotine? No Information not available 08/19/2023 Sex: Unknown Functional Status None recorded. Mental Status None recorded. Family History Relationship Description Onset Age of this Age Resolved Age Notes LastModified by Organization Details LastModified Time Mother Diabetes mellitus [email or web address] Not available 2020 14:42:00 Medical History Condition Response Asthma Y Gynecological HistoryNo gynecological history recorded. Obstetrics History GPAL:G 0 P 0 0 0 0 Past Encounters Encounter ID Performer Location Encounter Start Date Encounter Closed Date Diagnosis/Indication Diagnosis SNOMED-CT Code Diagnosis ICD10 Code Diagnosis Note [id number] MD Katerina Mckeon (Adult Med) [address] [place] [address] 07/12/2020 14:33:43 07/14/2020 17:41:40 Fatigue 09865795 R53.83 Morning headache 7791763 02 R51.9 F/u with sleep study as per bariatric surgery Dizziness 110758940 R42 Family his tory of Thyroid disorder 869010937 Z83.49 Body mass index 40+ - severely obese 012780965 Z68.41 Mass of soft tissue 4449 37906 R22.9 Disorder of skin 8236088 5 L98.9 [id number] [facility] [address] [place] [address] 01/21/2021 16:25:29 01/22/2021 07:39:45 Morbid obesity 989289551 E66.01 F/U with bariatric surgery Body mass index 40+ - severely obese 122259107 Z68.41 Reactive a irway disease 3161732874 06 J45.909 Eruption 824356890 R21 Allergic condition 88957 1001 T78.40XA [id number] MD Katerina Mckeon (Adult Med) [address] [place] [phone] 01/28/2021 15:53:20 01/29/2021 10:48:59 Morbid obesity 091777268 E66.01 F/U with bariatric surgery [id number] MD Katerina Mckeon (Adult Med) [address] [place] [phone] 02/13/2021 15:47:15 02/15/2021 07:43:02 Morbid obesity 150093234 E66.01 Continue diet and exercise programme. F/U with bariatric surgery Body mass index 40+ - severely obese 999163767 Z68.41 [id number] MD Katerina Mckeon (Adult Med) [address] [place] [address] 0 03/26/2021 15:31:01 03/27/2021 07:43:17 Body mass index 40+ - severely obese 100581675 Z68.41 Reactive a irway disease 8792511614 06 J45.909 Add steroid inhaler [id number] MD Kaetrina Hernandez (Adult Med) [address] [place] [phone] 0 12/24/2022 12:24:33 01/07/2023 10:38:29 Moderate persistent asthma 025398359 J45.40 Recent increase in asthma symptoms. May be related to new pet. Will test for dog allergies. Will start patient back on Symbicort BID and have her use Albuterol QID prn. Will give her Prednisone BID with food for five days. Will have her take Montelukas t one a day which should help if this is allergy. Will have her follow up with her primary provider in two weeks to further discuss asthma management . Advised her to call Thursday if she is not improving, and seek immediate medical attention if worse. [id number] MD Katerina Hernandez (Adult Med) [address] [place] [phone] 01/07/2023 11:17:38 01/13/2023 11:39:17 Moderate persistent asthma 717241851 J45.40 Asthma flare after got pet dog. IgE for dog dander is positive. Asthma is better controlled now that is on Symbicort for maintenanc e and taking Montelukas t. Is using Albuterol less but still uses it once a day. Would still like her to be using it less frequently . Asthma exacerbati on seems to be related to dog so will try adding antihistam ine. Will add Claritin once a day and continue Albuterol as needed. Continue Symbicort and Montelukas t daily. Follow up in one month. [id number] MD Katerina Mckeon (Adult Med) [address] [place] [id number] 0 04/08/2023 10:01:51 04/09/2023 15:57:50 Hypoglycemic syndrome 362460782 E16.2 Disorder of skin 2251337 5 L98.9 Dizziness 300072029 R42 Family his tory of Thyroid disorder 457221113 Z83.49 Fatigue 76109271 R53.83 Mass of soft tissue 4449 54250 R22.9 [id number] SMILEY Low (Adult Med) [address] [place] [address] [id number] 0 04/14/2023 14:27:15 04/14/2023 17:00:30 [id number] GARFIELD Hussein (Adult Med) [address] [place] [address] [id number] 0 04/23/2023 16:35:25 04/24/2023 09:08:53 Cobalamin deficiency 863980972 E53.8 [id number] SMILEY Chin (Adult Med) [address] [place] [address] 78148-762 0 05/01/2023 09:41:58 05/05/2023 16:10:06 Cobalamin deficiency 607573220 E53.8 [id number] WALDEMAR Orosco (Adult Med) [address] [place] [address] [phone] 0 05/15/2023 10:12:05 05/18/2023 10:04:06 Cobalamin deficiency 294956908 E53.8 [id number] MD Katerina Mckeon (Adult Med) [address] [place] [address] 89730-[address] 0 08/19/2023 16:28:19 08/21/2023 09:59:09 Low back pain 892266333 M54.50 Urinary tr act infectious disease 28018934 N39.0 Cobalamin deficiency 190 386645 E53.8 Continue B12 monthly supplement Family his tory of Thyroid disorder 230917381 Z83.49 Thiamine deficiency 3993 78750 E51.9 Health Concerns Section Related Observation LastModified by Organization Detai ls LastModified Time None Recorded Concern Status LastModified by Organization Details LastModified Time None Recorded Advance Directives Directive None Recorded Payers Encounter Date Sequence Insurance Name Policy Number Policy Nicolas Covered Member ID Nicolas Member ID Guarantor Name 04/14/2023 1 [facility] (MEDICAID HMO) [id number] Wilton Morales [id number] Wilton Morales 04/23/2023 1 [facility] (MEDICAID HMO) [id number] Wilton Morales [id number] Wilton Morales 05/01/2023 1 [facility] (MEDICAID HMO) [id number] Wilton Morales [id number] Wilton Morales 05/15/2023 1 [facility] (MEDICAID HMO) [id number] Wilton Morales [id number] Wilton Morales 08/19/2023 1 [facility] (MEDICAID HMO) [id number] Wilton Morales [id number] Wilton Morales Notes Date Note Type Note Provider Name and Address Organization Details Recorded Time 08/19/2023 text/html Here for cloudy urine and B12 injections Remi Francis MD Attn: Accounting,[address] [place], [address], [facility] 08/19/2023 17:32:01 OBGyn Episode No OBEpisode recorded.
[2024-06-05 05:22] VITALS: BP 123/75; PULSE 74; RESP 16; O2SAT 99
--- NOTE | 2024-06-05 05:47 | ED.GENADULT ---
HPI - General Adult General Chief complaint: Shortness of Breath/Dyspnea Stated complaint: lump under chin Time Seen by Provider: 06/05/24 05:24 History of Present Illness HPI narrative: This is a 38-year-old female presenting for a submandibular mass. Has been gone over last 2 weeks. It is painful to the touch. Is not causing her any difficulty breathing or difficulty swallowing. She has had a sore throat. No fevers chills nausea vomiting or diarrhea. Related Data Home Medications ?Medication ?Instructions ?Recorded ?Confirmed ?Last Taken ?Type albuterol sulfate 90 mcg/actuation 1 puff inhalation Q4H PRN 04/17/21 06/15/23 Unknown History aerosol inhaler (ProAir HFA) budesonide-formoterol HFA 160 2 puff inhalation Q12H 04/17/21 06/15/23 Unknown History mcg-4.5 mcg/actuation aerosol inhaler (Symbicort) cyanocobalamin (vitamin B-12) 1,000 mcg IM WEEKLY 06/15/23 06/15/23 Unknown History 1,000 mcg/mL injection solution Allergies Allergy/AdvReac Type Severity Reaction Status Date / Time No Known Allergies Allergy Verified 06/15/23 08:36 [facility] Past Medical History Medical History Screening mammogram, encounter for Dysuria Encounter for IUD insertion 06/11/06 mirena iud insertion 02/10/11 mirena iud removal Gonorrhea Hx of trichomonal vaginitis Constipation Asthma No acute medical problems Surgical History Surgical History History of gastric bypass (11/28/21) History of tubal ligation 01/20/12 Family History Family History Mother Diabetes mellitus Father Diabetes mellitus Grandparent Breast cancer maternal grandmother Other Breast cancer maternal aunt Social History Social History Smoking status: Never smoker Alcohol intake: never Substance use: never Substance use type: does not use Lack of Transportation: No Lack of Food: Never True Current Housing: I Have Housing Concerned About Future Housing: No Difficulty Paying Gas/Electric Bills: No Difficulty Paying for Meds: No Currently Unemployed: No Education: Trade/Vocational Certificate Difficulty w/ Childcare or Family Care: No Living arrangements: with family Additional living arrangements comments: children/ single Occupation/Education: 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 Head: Firm submandibular mass, point of care ultrasound showed a lymph node, erythema posterior oropharynx EYES: EOMI, NOSE: Atraumatic NECK: Trachea midline RESPIRATORY: No increased rate of breathing CKD CARDIOVASCULAR: RRR, ABDOMINAL: Non-distended MUSCULOSKELETAl: No obvious deformities NEURO: Alert. Moving 4/4 extremities SKIN:: Warm, dry. Normal color PSYCHIATRIC: Normal affect Course Vital Signs Vital signs: Vital Signs Temperature 97.5 F L 06/05/24 02:19 Pulse Rate 89 06/05/24 02:19 Respiratory Rate 16 06/05/24 02:19 Blood Pressure 126/82 06/05/24 02:19 Pulse Oximetry 100 06/05/24 02:19 Oxygen Delivery Room Air 06/05/24 02:19 Temperature 97.5 F L 06/05/24 02:19 Pulse Rate 74 06/05/24 05:22 Respiratory Rate 16 06/05/24 05:22 Blood Pressure 123/75 06/05/24 05:22 Pulse Oximetry 99 06/05/24 05:22 Oxygen Delivery Room Air 06/05/24 02:19 Medical Decision Making [facility] Narrative Medical decision making narrative: -Course: 38-year-old female presenting with the submandibular mass. Point of care ultrasound revealed to be a inflamed lymph node. Patient does have a sore throat and erythema of the posterior oropharynx. Pharyngitis is likely the source of her lymphadenopathy. Patient be treated with antibiotics and a shot of steroids. Given primary care follow-up -DDX includes but is not limited to: Submandibular abscess, lymphadenopathy, sialadenitis -Co-morbidities complicating care: Asthma Vital Signs Vital Signs: Vital Signs Temperature 97.5 F L 06/05/24 02:19 Pulse Rate 89 06/05/24 02:19 Respiratory Rate 16 06/05/24 02:19 Blood Pressure 126/82 06/05/24 02:19 Pulse Oximetry 100 06/05/24 02:19 Oxygen Delivery Room Air 06/05/24 02:19 Temperature 97.5 F L 06/05/24 02:19 Pulse Rate 74 06/05/24 05:22 Respiratory Rate 16 06/05/24 05:22 Blood Pressure 123/75 06/05/24 05:22 Pulse Oximetry 99 06/05/24 05:22 Oxygen Delivery Room Air 06/05/24 02:19 Discharge Plan Discharge Clinical Impression: Pharyngitis, Lymphadenopathy Patient Disposition: Home, Self-Care Condition: Stable Instructions: Antibiotic Form, Lymphadenopathy (ED) Additional Instructions: Using emergency department for a submandibular mass. This is a reactive lymph node from your sore throat. Please complete course of antibiotics. Use Motrin Tylenol for pain. Please follow-up with your primary care physician for further management. Patient Language: Kinyarwanda Prescriptions: New amoxicillin 500 mg capsule 500 mg PO Q12H Qty: 20 0RF ibuprofen 800 mg tablet 800 mg PO TID PRN (Reason: pain) 7 Days Qty: 21 0RF acetaminophen 500 mg tablet 1,000 mg PO TID PRN (Reason: margaret) 7 Days Qty: 42 0RF No Action budesonide-formoterol [Symbicort] 160-4.5 mcg/actuation HFA aerosol inhaler 2 puff inhalation Q12H albuterol sulfate [ProAir HFA] 90 mcg/actuation HFA aerosol inhaler 1 puff inhalation Q4H PRN cyanocobalamin (vitamin B-12) 1,000 mcg/mL solution 1,000 mcg IM WEEKLY Follow-up/Referrals: Tito,Remi Whyte MD [Primary Care Provider] -
--- OUTSIDE RECORDS SUMMARY | 2024-06-05 05:54 | XMS_ITS | Clinical Summary ---
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
--- OUTSIDE RECORDS SUMMARY | 2024-06-05 05:54 | XMS_ITS | Clinical Summary ---
Author Organization [facility] Address [address] [place] [address] Care Team Providers Care Lead Dental Assistant Name Role Phone No, Physician Primary Care Provider [phone] Liset Jaimes PT Unavailable Unavailab le Allergies [...] (01/10/2022): Added automatically from request for surgery [id number] Vomiting 01/10/2022 Overview (01/10/2022): Added automatically from request for surgery [id number] Morbid (severe) obesity due to excess calories 0 11/28/2021 Gastroesophageal reflux disease without esophagi tis 10/03/2020 Fatigue 07/12/2020 Dizziness 07/12/2020 Disorder of skin 07/12/2020 Overview (08/21/2023): possible tinea versicolour Mass of soft tissue 07/12/2020 Overview (08/21/2023): left scalp Morning headache 07/12/2020 No diagnosis on [place] I 04/13/2020 Asthma 03/20/2020 Hypersomnia 03/20/2020 Snoring 03/20/2020 Morbid obesity 01/09/2020 Encounters Date Type Department Care Team Description 04/13/2024 2:53 PM MARKETING PROGRAM COORDINATOR - 04/13/2024 11:59 PM MARKETING PROGRAM COORDINATOR Hospital Encounter [facility] [address] [place] [address] Pre-employment health screening examination Discharge Disposition: Discharge to home or self care 04/13/2024 Orders Only [facility] Healthcare Occupatiuonal Health [address] [facility] [address] (Third Floor) [place] [address] Tito King MD Pre-employment health screening examination [...] Father Rambo Cancer Mother Lotus Depression Mother Lotus Obesity Mother Lotus Relation Name Status Comments [...] on file Legal Sex Female 8:44 PM MARKETING PROGRAM COORDINATOR Gender Identity Female 01/04/2020 2:45 PM CDT [...] this topic Medical Devices Implanted Type Area Greenhouse Worker Device Identifier Shelf Expiration Date Model / Serial / Lot [employer] Biological Bariatric Peristrip Non Crosslinked Bovine Pericardium For Endo Iva Thin [id number] - [id number] Implanted:Qty: 1 on 11/28/2021 by Abdullahi Jordan MD at [facility] Staple N/A: Stomach [employer] 09/27/2022 [id number] / / [id number] [employer] Biological Bariatric Peristrip Non Crosslinked Bovine Pericardium For Endo Iva Thin [id number] - [id number] Implanted:Qty: 1 on 11/28/2021 by Abdullahi Jordan MD at [facility] Staple N/A: Stomach [employer] 09/27/2022 [id number] / / [id number] Procedures Procedure Name Priority Date/Time Associated Diagnosis Comments T-SPOT.TB Routine 04/13/2024 2:22 PM MARKETING PROGRAM COORDINATOR Pre-employment health screening examination VARICELLA ZOSTER ANTIBODY, IGG Routine 04/13/2024 2:22 PM MARKETING PROGRAM COORDINATOR Pre-employment health screening examination from Last 3 Months Results * T-SPOT.TB Blood (04/13/2024 2:22 PM MARKETING PROGRAM COORDINATOR) [facility] T-SPOT.TB Negative SeeBelow Comment: Normal Value: Negative [...] test. T-SPOT.TB Panel A Spot Count 1 [facility] T-SPOT.TB Panel B Spot Count 0 [facility] T-SPOT.TB Negative Control Passed [facility] T-SPOT.TB Positive Control Passed [facility] Comment: Test Performed at: [facility] [address] [place] [id number] MELISSA CABRAL,PHD Blood 04/13/2024 2:22 PM MARKETING PROGRAM COORDINATOR 04/13/2024 7:46 PM MARKETING PROGRAM COORDINATOR Narrative [facility] - 04/15/2024 3:12 PM MARKETING PROGRAM COORDINATOR Patient is employed by/enrolled at:->[facility] us Tito King MD LAB MICROBIOLOGY - GENERAL OR DERABLES Final Result [facility] Department [place] [address] * Varicella Zoster IgG antibody Blood (04/13/2024 2:22 PM MARKETING PROGRAM COORDINATOR) VZV IgG Reactive Reactive Comment:Reactive: Results charlton ggest response to immunization or prior exposure to the virus. Blood 04/13/2024 2:22 PM MARKETING PROGRAM COORDINATOR 04/13/2024 3:00 PM MARKETING PROGRAM COORDINATOR Narrative [facility] - 04/14/2024 10:33 AM MARKETING PROGRAM COORDINATOR Patient is employed by/enrolled at:->[facility] us Tiot King MD LAB MICROBIOLOGY - GENERAL OR DERABLES Final Result [facility] Department [place] [address] from Last 3 Months Insurance [facility] Advance Directives For more information, please contact: [phone] * Full Code (Latest Code Status on File) Date Activated Date Inactivated Comments 11/28/2021 5:39 PM 11/29/2021 9:25 PM * Full Code Date Activated Date Inactivated Comments 10/03/2020 9:04 AM 10/03/2020 1:25 PM Care Teams Lead Dental Assistant Relationship Specialty Start Date End Date No, Physician PCP - General 05/22/21 Liset Jaimes, PT Physical Therapist Physical Therapy 07/31/21
--- OUTSIDE RECORDS SUMMARY | 2024-06-05 05:54 | XMS_ITS | Referral Summary ---
Author Organization [facility] Address [address] [place] [address] Care Team Providers Care Fusion Analyst Name Role Phone No, Physician Primary Care Provider [phone] Liset Jaimes PT Unavailable Unavailab le Encounters Date Type Department Care Team Description 04/13/2024 2:53 PM PERSONNEL COORDINATOR - 04/13/2024 11:59 PM PERSONNEL COORDINATOR Hospital Encounter [facility] [address] [place] [address] Pre-employment health screening examination Discharge Disposition: Discharge to home or self care 04/13/2024 Orders Only [facility] ED Occupatinal Health [address] [facility] [address] (Third Floor) [place] [address] Tito King MD Pre-employment health screening examination [...] (01/10/2022): Added automatically from request for surgery [id number] Vomiting 01/10/2022 Overview (01/10/2022): Added automatically from request for surgery [id number] Morbid (severe) obesity due to excess calories 0 11/28/2021 Gastroesophageal reflux disease without esophagi tis 10/03/2020 Fatigue 07/12/2020 Dizziness 07/12/2020 Disorder of skin 07/12/2020 Overview (08/21/2023): possible tinea versicolour Mass of soft tissue 07/12/2020 Overview (08/21/2023): left scalp Morning headache 07/12/2020 No diagnosis on [place] I 04/13/2020 Asthma 03/20/2020 Hypersomnia 03/20/2020 Snoring [...] on file Legal Sex Female 8:44 PM PERSONNEL COORDINATOR Gender Identity Female 01/04/2020 2:45 PM [...] on file Medical Devices Implanted Type Area Platen Press Feeder Device Identifier Shelf Expiration Date Model / Serial / Lot [employer] Biological Bariatric Peristrip Non Crosslinked Bovine Pericardium For Endo Iva Thin [id number] - [id number] Implanted:Qty: 1 on 11/28/2021 by Abdullahi Jordan MD at [facility] Staple N/A: Stomach [employer] Donny 09/27/2022 [id number] / / [id number] [employer] Biological Bariatric Peristrip Non Crosslinked Bovine Pericardium For Endo Iva Thin [id number] - [id number] Implanted:Qty: 1 on 11/28/2021 by Abdullahi Jordan MD at [facility] Staple N/A: Stomach [employer] 09/27/2022 [id number] / / [id number] Procedures Procedure Name Priority Date/Time Associated Diagnosis Comments T-SPOT.TB Routine 04/13/2024 2:22 PM PERSONNEL COORDINATOR Pre-employment health screening examination VARICELLA ZOSTER ANTIBODY, IGG Routine 04/13/2024 2:22 PM PERSONNEL COORDINATOR Pre-employment health screening examination from Last 3 Months Results * T-SPOT.TB Blood (04/13/2024 2:22 PM PERSONNEL COORDINATOR) [facility] T-SPOT.TB Negative SeeBelow Comment: Normal Value: Negative [...] test. T-SPOT.TB Panel A Spot Count 1 [facility] T-SPOT.TB Panel B Spot Count 0 [facility] T-SPOT.TB Negative Control Passed [facility] T-SPOT.TB Positive Control Passed [facility] Comment: Test Performed at: [facility] [address] [place] [address] MELISSA CABRAL,PHD Blood 04/13/2024 2:22 PM PERSONNEL COORDINATOR 04/13/2024 7:46 PM PERSONNEL COORDINATOR Narrative [facility] - 04/15/2024 3:12 PM PERSONNEL COORDINATOR Patient is employed by/enrolled at:->[facility] Tito King MD LAB MICROBIOLOGY - GENERAL OR DERABLES Final Result Performing Organization Address [facility]/[employer] Phone Number [facility] [place] [address] * Varicella Zoster IgG antibody Blood (04/13/2024 2:22 PM PERSONNEL COORDINATOR) [facility] VZV IgG Reactive Reactive Comment:Reactive: Results charlton ggest response to immunization or prior exposure to the virus. Blood 04/13/2024 2:22 PM PERSONNEL COORDINATOR 04/13/2024 3:00 PM PERSONNEL COORDINATOR Narrative [facility] - 04/14/2024 10:33 AM PERSONNEL COORDINATOR Patient is employed by/enrolled at:->[facility] Tito King MD LAB MICROBIOLOGY - GENERAL OR DERABLES Final Result Performing Organization Address [facility] de Phone Number [facility] Department [place] [address] from Last 3 Months Insurance [facility] Advance Directives For more information, please contact: [phone] * Full Code (Latest Code Status on File) Date Activated Date Inactivated Comments 11/28/2021 5:39 PM 11/29/2021 9:25 PM * Full Code Date Activated Date Inactivated Comments 10/03/2020 9:04 AM 10/03/2020 1:25 PM Care Teams Fusion Analyst Relationship Specialty Start Date End Date No, Physician PCP - General 05/22/21 Liset Jaimes PT Physical Therapist Physical Therapy 07/31/21
[2024-06-05] MEDS: AMOXICILLIN 500 MG CAPSULE PO (06:08)
[2024-06-05] MEDS: IBUPROFEN 400 MG TABLET 800 MG PO (06:08)
[2024-06-05] MEDS: dexAMETHasone SOD PHOS INJ 10 MG/ML 1 ML VIAL IM (06:08)
[2024-06-05 06:10] VITALS: O2SAT 100
== END 2024-06-05 06:13 | disposition home or self-care (01) ==
LOC: ANHED 05:52
PROVIDERS: Emergency Provider Emergency Medicine; PCP Internal Medicine Gastroenterology
DX: J02.9 Acute pharyngitis, unspecified (principal); R59.1 Generalized enlarged lymph nodes; J45.909 Unspecified asthma, uncomplicated; Z98.84 Bariatric surgery status; Z79.51 Long term (current) use of inhaled steroids
CPT/HCPCS: 71046; 93005; 96372; 99284; A9270; J1100

== ENCOUNTER 2024-09-25 12:24 | Emergency (ER) | payer OTHER, SELFPAY ==
--- NOTE | ~2024-09-25 | CT_ITS ---
Non-contrast Head CT History: Trauma Technique: Axial non-contrast imaging of the brain was performed. Dose reduction technique was used on this scan by utilizing automated exposure control and iterative reconstruction technique. The dose -length product (DLP) was 605.33 mGy-cm. Findings: There is no evidence of intracranial hemorrhage, mass lesion, or acute infarct. Brain par enchyma appears normal. The ventricles and subarachnoid spaces are normal in size. The calvarium ap pears normal. There is right sphenoid sinus disease. The remaining visualized paranasal sinuses and m astoid air cells are clear. Benign-appearing scalp mass present in the high left scalp. Impression: No intracranial abnormality seen. Reviewed, dictated and finalized at location . Impression: No intracranial abnormality seen.
--- NOTE | ~2024-09-25 | CT_ITS ---
CT Facial Bones and Cervical Spine Clinical Indication: Trauma Technique: Contiguous axial scans were obtained through the facial bones and cervical spine followed by coronal and sagittal reconstructions. Dose reduction technique was used on this scan by utilizing automated exposure control and iterative reconstruction technique. The dose-length product (DLP) was 425.59 mGy-cm. Findings: CT facial bones: No fractures are identified. The visualized paranasal sinuses are clear. Intraorbita l soft tissues appear normal. CT cervical spine: No fractures or subluxation. There is mild reversal of the normal cervical lordos is. The intervertebral disc spaces are preserved. No prevertebral soft tissue swelling. Impression: No fracture is seen in the facial bones. No fracture or subluxation of the cervical spine. Reviewed, dictated and finalized at location . Impression: No fracture is seen in the facial bones. No fracture or subluxation of the cervical spine.
--- NOTE | ~2024-09-25 | XR_ITS ---
Right Hand Technique: PA, oblique, and lateral views were obtained. Clinical History: Trauma Findings: No acute fracture or dislocation is seen. Osseous alignment is anatomic. Joint spaces are p reserved. Soft tissues are unremarkable. Impression: Unremarkable right hand. Reviewed, dictated and finalized at location M. Impression: Unremarkable right hand.
--- OUTSIDE RECORDS SUMMARY | 2024-09-25 12:26 | XMS_ITS | Clinical Summary ---
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
[2024-09-25 12:32] VITALS: BP 151/79; PULSE 102; RESP 18; TEMP 36.6; O2SAT 100
--- OUTSIDE RECORDS SUMMARY | 2024-09-25 12:52 | XMS_ITS | Clinical Summary ---
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
[2024-09-25 13:05] VITALS: BP 127/88; PULSE 94; RESP 18; O2SAT 100
--- NOTE | 2024-09-25 13:14 | ED_ITS ---
HPI - General Adult General Chief complaint: Head Injury Stated complaint: Low Blood Sugar Fall Head Injury Time Seen by Provider: 09/25/24 12:33 History of Present Illness HPI narrative: 38-year-old female presents to the emergency department for evaluation after having a fall from her vehicle. Patient reports does have history of hypoglycemia that has been frequent since after having her gastric bypass. She states she did not have anything to eat or drink today prior to the episode. Patient's blood sugar was approximately 47 after the episode but patient did eat afterwards. Patient does complain bright face and head injury. Patient also has complaint of right hand pain. Related Data Home Medications ?Medication ?Instructions ?Recorded ?Confirmed ?Last Taken ?Type albuterol sulfate 90 mcg/actuation 1 puff inhalation Q4H PRN 04/17/21 06/15/23 Unknown History aerosol inhaler (ProAir HFA) budesonide-formoterol HFA 160 2 puff inhalation Q12H 04/17/21 06/15/23 Unknown History mcg-4.5 mcg/actuation aerosol inhaler (Symbicort) cyanocobalamin (vitamin B-12) 1,000 mcg IM WEEKLY 06/15/23 06/15/23 Unknown History 1,000 mcg/mL injection solution Allergies Allergy/AdvReac Type Severity Reaction Status Date / Time No Known Allergies Allergy Verified 09/25/24 12:25 Review of Systems 2 Review of Systems: All systems reviewed & are unremarkable except as noted in HPI and below PMFSH Past Medical History Medical History Screening mammogram, encounter for Dysuria Encounter for IUD insertion 06/11/06 mirena iud insertion 02/10/11 mirena iud removal Gonorrhea Hx of trichomonal vaginitis Constipation Asthma No acute medical problems Surgical History Surgical History History of gastric bypass (11/28/21) History of tubal ligation 01/20/12 Family History Family History Mother Diabetes mellitus Father Diabetes mellitus Grandparent Breast cancer maternal grandmother Other Breast cancer maternal aunt Social History Social History Smoking status: Never smoker Alcohol intake: never Substance use: never Substance use type: does not use Lack of Transportation: No Lack of Food: Never True Current Housing: I Have Housing Concerned About Future Housing: No Difficulty Paying Gas/Electric Bills: No Difficulty Paying for Meds: No Currently Unemployed: No Education: Trade/Vocational Certificate Difficulty w/ Childcare or Family Care: No Living arrangements: with family Additional living arrangements comments: children/ single Occupation/Education: occupation Additional occupation/education comments: [employer] Gender identity (if verbalized by the patient): Female Sexual Orientation (if Verbalized by the Patient): Straight or Heterosexual Exam 2 Narrative: APPEARANCE: Well appearing, no pain, no distress, well-nourished. HEAD: Abrasion to right lateral face, tenderness to right head EYES: PERRLA/EOMI, conjunctivae clear. NOSE: Normal no drainage EARS:TMS clear with good light reflex. THROAT: Pharynx clear, no exudate. NECK: Supple. No adenopathy, no masses. RESPIRATORY: Airway patent, respirations nonlabored. Clear to auscultation bilaterally, no rales, rhonchi, wheezing. CARDIOVASCULAR: Regular rate and rhythm without murmurs rubs or gallops. ABDOMINAL: Soft, nontender, nondistended, normal bowel sounds MUSCULOSKELETAL: Tenderness to right hand, no deformity neurovascularly intact NEURO: Alert. Cranial nerves II through XII intact. Grossly intact SKIN: Warm, dry. Normal Color Course Vital Signs Vital signs: Vital Signs Temperature 97.8 F 09/25/24 12:32 Pulse Rate 102 H 09/25/24 12:32 Respiratory Rate 18 09/25/24 12:32 Blood Pressure 151/79 H 09/25/24 12:32 Pulse Oximetry 100 09/25/24 12:32 Temperature 97.8 F 09/25/24 12:32 Pulse Rate 94 09/25/24 13:05 Respiratory Rate 18 09/25/24 13:05 Blood Pressure 127/88 09/25/24 13:05 Pulse Oximetry 100 09/25/24 13:05 Medical Decision Making MDM Narrative Medical decision making narrative: 38-year-old female presents emergency department for evaluation after having near syncopal episode after a hypoglycemic episode. Patient is currently afebrile with no leukocytosis hemoglobin of 8.9. Patient has a normal blood glucose with no other acute electrolyte abnormalities. Patient is tolerating p.o.. Head face and neck CT were negative. Patient's hand x-ray was also negative. Patient was updated the results of the workup patient was comfortable the plan for discharge and close follow-up. Patient was encouraged to follow a balanced diet Differential Diagnosis Differential Diagnosis: Have a CVA, dehydration, orthostatic hypotension, cervical hematoma, subarachnoid hemorrhage, facial fracture, cervical spine fracture Vital Signs Vital Signs: Vital Signs Temperature 97.8 F 09/25/24 12:32 Pulse Rate 102 H 09/25/24 12:32 Respiratory Rate 18 09/25/24 12:32 Blood Pressure 151/79 H 09/25/24 12:32 Pulse Oximetry 100 09/25/24 12:32 Temperature 97.8 F 09/25/24 12:32 Pulse Rate 94 09/25/24 13:05 Respiratory Rate 18 09/25/24 13:05 Blood Pressure 127/88 09/25/24 13:05 Pulse Oximetry 100 09/25/24 13:05 Lab Data Lab results reviewed: Yes I reviewed the patient's lab results. 09/25/24 13:35 09/25/24 13:35 Labs: Lab Results 09/25/24 09/25/24 Range/Units 12:30 13:35 WBC 5.4 (4.5-10.0) K/mm3 RBC 3.94 L (4.2-5.4) M/mm3 Hgb 8.9 L (12.0-15.0) g/dL Hct 28.9 L (37.0-47.0) % MCV 73.4 L (80-100) fl MCH 22.6 L (26-34) pg MCHC 30.8 L (32-36) g/dl RDW 18.7 H (11.5-14.5) % Plt Count 291 (150-375) k/mm3 MPV 9.3 (7.4-10.4) fl Immature Gran % (Auto) 0.4 (0-0.5) % Neut % (Auto) 54.5 (45.5-73.1) % Lymph % (Auto) 32.1 (18.3-44.2) % [place] % (Auto) 6.7 (2.6-8.5) % Eos % (Auto) 5.2 H (0-4.4) % Baso % (Auto) 1.1 (0.2-1.2) % Lymph # (Auto) 1.72 (0.9-3.2) K/mm3 [place] # (Auto) 0.4 (0.1-0.6) K/mm3 Eos # (Auto) 0.3 (0-0.3) K/mm3 Baso # (Auto) 0.1 (0.0-0.1) K/mm3 Abs Immat Gran (auto) 0.02 (0.00-0.031) K/mm3 Absolute Neuts (auto) 2.9 (1.3-6.7) K/mm3 Absolute Nucleated RBC 0.000 (0.0-0.012) K/mm3 Band Neutrophils % Not Reportable Nucleated RBC % 0.0 (0.0-0.2) % Platelet Estimate Adequate (Adequate) Hypochromasia 1+ Microcytosis 1+ (NORMAL) Schistocytes None seen Sodium 138 (137-145) mmol/L Potassium 3.8 (3.4-5.0) mmol/L Chloride 108 H (98-107) mmol/L Carbon Dioxide 24 (22-30) mmol/L Anion Gap 6 (4-12) mmol/L BUN 11 (7-17) mg/dL Creatinine 0.68 L (0.7-1.0) mg/dL Estim Creat Clear Calc 103 ml/min Estimated GFR > 60 (59 - ) Glucose 76 (65-110) mg/dL POC Capillary Glucose 155 H (65-105) mg/dl Calcium 8.5 (8.4-10.2) mg/dL Total Bilirubin 0.8 (0.2-1.3) mg/dL AST 35 (14-36) U/L ALT 18 (6-35) U/L Alkaline Phosphatase 60 (38-126) U/L Total Protein 7.2 (6.3-8.2) g/dL Albumin 3.8 (3.5-5.1) g/dL Imaging Data Radiologist's impression: Impressions Hand X-Ray 09/25/24 14:00 Impression: Unremarkable right hand. Head CT 09/25/24 14:00 Impression: No intracranial abnormality seen. Head/Cervical Spine/Facial Bones CT 09/25/24 14:00 Impression: No fracture is seen in the facial bones. No fracture or subluxation of the cervical spine. Discharge Plan Discharge Clinical Impression: Head injury, Hand injury, Hypoglycemia Patient Disposition: Home Condition: Stable Instructions: Antibiotic Form, Non-diabetic Hypoglycemia (ED), Head Injury (ED) Additional Instructions: Your imaging was negative for acute injury. Follow a well-balanced diet. Have close follow-up with your primary care physician. Patient Language: Mohawk Prescriptions: No Action budesonide-formoterol [Symbicort] 160-4.5 mcg/actuation HFA aerosol inhaler 2 puff inhalation Q12H albuterol sulfate [ProAir HFA] 90 mcg/actuation HFA aerosol inhaler 1 puff inhalation Q4H PRN cyanocobalamin (vitamin B-12) 1,000 mcg/mL solution 1,000 mcg IM WEEKLY amoxicillin 500 mg capsule 500 mg PO Q12H Qty: 20 0RF ibuprofen 800 mg tablet 800 mg PO TID PRN (Reason: pain) 7 Days Qty: 21 0RF acetaminophen 500 mg tablet 1,000 mg PO TID PRN (Reason: margaret) 7 Days Qty: 42 0RF Follow-up/Referrals: Tito,Remi Whyte MD [Primary Care Provider] -
[2024-09-25 13:42] LABS: Hematocrit 28.9 % (37.0-47.0); Hemoglobin 8.9 g/dL (12.0-15.0); Immature Granulocyte Percent A 0.4 % (0-0.5); Lymphocytes Absolute Auto 1.72 K/mm3 (0.9-3.2); Mean Corpuscular HGB Conc 30.8 g/dl (32-36); Mean Corpuscular Hemoglobin 22.6 pg (26-34); Mean Corpuscular Volume 73.4 fl (80-100); Nucleated Red Blood Cells Absolute Auto 0.000 K/mm3 (0.0-0.012); Nucleated Red Blood Cells Perc 0.0 % (0.0-0.2); Platelet Count Result 291 k/mm3 (150-375); Red Blood Count 3.94 M/mm3 (4.2-5.4); White Blood Count 5.4 K/mm3 (4.5-10.0)
[2024-09-25 13:52] LABS: Alanine Aminotransferase 18 U/L (6-35); Albumin Level 3.8 g/dL (3.5-5.1); Alkaline Phosphatase 60 U/L (38-126); Anion Gap 6 mmol/L (4-12); Aspartate Amino Transferase 35 U/L (14-36); Bilirubin,Total 0.8 mg/dL (0.2-1.3); Blood Urea Nitrogen 11 mg/dL (7-17); Calcium 8.5 mg/dL (8.4-10.2); Carbon Dioxide 24 mmol/L (22-30); Chloride 108 mmol/L (98-107); Estimated CRCL calculation 103 ml/min; Estimated Glomerular Filt Rate > 60; Glucose 76 mg/dL (65-110); Potassium 3.8 mmol/L (3.4-5.0); Sodium 138 mmol/L (137-145); Total Protein 7.2 g/dL (6.3-8.2)
[2024-09-25 14:03] LABS: Hypochromasia 1+; Microcytosis 1+ (NORMAL); Schistocytes None Seen
== END 2024-09-25 14:49 | disposition home or self-care (01) ==
PROVIDERS: Emergency Provider Emergency Medicine; PCP Internal Medicine Gastroenterology
DX: S00.81XA Abrasion of other part of head, initial encounter (principal); S69.91XA Unspecified injury of right wrist, hand and finger(s), initial encounter; E16.2 Hypoglycemia, unspecified; J45.909 Unspecified asthma, uncomplicated; Z98.84 Bariatric surgery status; W17.89XA Other fall from one level to another, initial encounter
CPT/HCPCS: 36415; 70450; 70486; 72125; 73130; 80053; 82948; 85025; 99284